=== PATIENT | female | born 1970 | race Caucasian/White ===

== ENCOUNTER 2017-07-10 19:30 | Emergency (ER) | payer OTHER ==
[2017-07-10 19:54] VITALS: BP 118/86
[2017-07-10] MEDS ORDERED: LIDOCAINE 1%/EPINEPHRINE INJ 20 ML VIAL INJ ONE (21:05)
[2017-07-10] MEDS ORDERED: PROMETHAZINE HCL 25 MG TABLET PO ONE (21:21)
[2017-07-10] MEDS ORDERED: OXYCODONE-ACETAMINOPHEN 5-325 MG TABLET PO ONE (21:21)
--- NOTE | 2017-07-10 21:22 | ER Document Report ---
ED Medical Screen (RME) - General Chief Complaint: Abscess Stated Complaint: POSSIBLE ABSCESS/RIGHT GROIN AREA Time Seen by Provider: 07/10/17 21:21 Notes: 46-year-old female, chief complaint of worsening boil inguinal area. She has had abscesses in the past. She reports redness and tenderness to the area, denies fever, denies diabetes, denies any other symptoms. TRAVEL OUTSIDE OF THE [place] IN LAST 30 DAYS: No - Related Data Allergies/Adverse Reactions: No Known Allergies Allergy (Verified 07/10/17 19:50) Past Medical History Renal/ Medical History: Denies: Hx Peritoneal Dialysis Physical Exam - Vital signs Vitals: Temp Pulse Resp BP Pulse Ox 98.6 F 69 16 118/86 H 97 07/10/17 19:50 07/10/17 19:50 07/10/17 19:50 07/10/17 19:50 07/10/17 19:50 - Skin Location of irregularity: Other - Right inguinal area with tender, fluctuant, erythematous area, exam is limited by triage location Course - Vital Signs Vital signs: Temp Pulse Resp BP Pulse Ox 98.6 F 69 16 118/86 H 97 07/10/17 19:50 07/10/17 19:50 07/10/17 19:50 07/10/17 19:50 07/10/17 19:50
[2017-07-10] MEDS ORDERED: CLINDAMYCIN HCL 150 MG CAPSULE PO ONE (22:39)
[2017-07-10] MEDS ORDERED: SULFAMETHOXAZOLE/TRIMETHOPRIM 800-160 MG TABLET PO ONE (22:39)
--- NOTE | 2017-07-10 22:42 | ER Document Report ---
ED General - General Chief Complaint: Abscess Stated Complaint: POSSIBLE ABSCESS/RIGHT GROIN AREA Time Seen by Provider: 07/10/17 21:21 Notes: Patient is a 46-year-old female who presents with complaint of a abscess in the right inguinal area. Patient says abscesses right where she left node biopsy and removal 5 years ago. Lymph nodes were negative for cancer. This was because of vulvar cancer. She is cancer free and has been for 5 years. She denies any fevers. She is visiting from [place]. She has no other complaints at this time. Abscesses been there for approximately 4 days. TRAVEL OUTSIDE OF THE [place] IN LAST 30 DAYS: No - Related Data Allergies/Adverse Reactions: No Known Allergies Allergy (Verified 07/10/17 19:50) Past Medical History - Social History Smoking Status: Unknown if Ever Smoked Frequency of alcohol use: None Drug Abuse: None Family History: Reviewed & Not Pertinent Renal/ Medical History: Denies: Hx Peritoneal Dialysis Review of Systems - Review of Systems Notes: My Normal Review Basic REVIEW OF SYSTEMS: CONSTITUTIONAL : Denies fever, chills, or sweats. Denies recent illness. GASTROINTESTINAL: Denies abdominal pain. Denies nausea, vomiting, or diarrhea. Denies constipation. Last BM: GENITOURINARY: Denies difficulty urinating, painful urination, burning, frequency, or blood in urine. MUSCULOSKELETAL: Denies neck or back pain or joint pain or swelling. SKIN: Pain and possible abscess in right inguinal area. NEUROLOGICAL: Denies altered mental status or loss of consciousness. Denies headache. Denies weakness or paralysis or loss of use of either side. Denies problems with gait or speech. Denies sensory or motor loss. ALL OTHER SYSTEMS REVIEWED AND NEGATIVE. Physical Exam - Vital signs Vitals: Temp Pulse Resp BP Pulse Ox 98.6 F 69 16 118/86 H 97 07/10/17 19:50 07/10/17 19:50 07/10/17 19:50 07/10/17 19:50 07/10/17 19:50 - Notes Notes: General Appearance: Well nourished, alert, cooperative, no acute distress, no obvious discomfort. Normal Appearing. Vitals: reviewed, See vital signs table. Lungs: No wheezing, No rales, No rhonci, No accessory muscle use, good air exchange bilaterally. Heart: Normal rate, Regular rythm, No murmur, no rub Abdomen: Normal BS, soft, No rigidity, No abdominal tenderness, No guarding, no rebound, no abdominal masses, no organomegaly Extremities: strength 5/5 in all extremities, good pulses in all extremities, no swelling or tenderness in the extremities, no edema. Skin: Small area of fluctuance and redness in the right inguinal area. On bedside ultrasound patient does have approximately a 2-3 cm fluid collection consistent with an abscess. Only localized erythema. Neuro: speech clear, oriented x 3, normal affect, responds appropriately to questions. Course - Re-evaluation Re-evalutation: 07/11/17 05:50 Abscess was incised. Pus was drained. It was then flushed with saline. I did apply Betadine packing. I did place a Xeroform gauze. Patient to follow-up with her physician soon as she gets back to however. Patient to return to ER immediately if she has any recurrence of swelling or fluctuance, spreading redness, or fevers. Patient agrees with plan will be discharged home. Dictation of this chart was performed using voice recognition software; therefore, there may be some unintended grammatical errors. - Vital Signs Vital signs: Temp Pulse Resp BP Pulse Ox 98.6 F 69 16 118/86 H 97 07/10/17 19:50 07/10/17 19:50 07/10/17 19:50 07/10/17 19:50 07/10/17 19:50 Procedures - Incision and Drainage right inguinal area Type: Simple Anesthetic type: 1% Lidocaine mL's of anesthetic: 2 Blade size: 11 I&D procedure: Chlorprep applied Incision Method: Incision made by scalpel Amount/type of drainage: purulent 3mls Notes: 07/11/17 05:51 Iodoform packing was loosely placed. Xeroform gauze was placed over. Patient tolerated procedure well without complications. Discharge - Discharge Clinical Impression: Abscess Condition: Good Disposition: HOME, SELF-CARE Additional Instructions: ABSCESS: You have an abscess (boil). This a pus-forming infection, usually due to staph. Some boils may be left to drain on their own, but most require lancing. From the time the tender lump first appears, it may be three or four days before the abscess is ready to denis. Local heat and rest help at this stage of treatment. An antibiotic may prevent spread of the infection. Once the abscess is opened, packing may be placed into it. This is done so pus is not sealed inside by premature closure of the cavity. The packing will be removed at your follow-up visit or you may be advised to remove it yourself at home. Sometimes this packing must be replaced a few times during healing. The wound will heal with surprisingly little scar. Depending on the size and location of an abscess, healing can take one to four weeks. You may shower and wash the area around the incision site two or three times a day. Antibiotics may be prescribed, but are usually not necessary after an abscess has been drained. If you develop fever, chills, worsening pain, or increasing swelling in the area, call the doctor or return immediately. POST INCISION AND DRAINAGE: You have had an incision made to allow drainage of an abscess. The incision must remain open so that pus and debris can drain from the wound. If the abscess cavity is large, packing is placed. This keeps the tissues from collapsing and trapping pus inside, while the body shrinks the cavity. The packing may need to be replaced every day or two. The physician will instruct you on the packing. Keep a bulky dressing over the area. Replace it if it becomes saturated with blood or pus. Do not disturb the packing (if present). You may shower and cleanse the area with gentle soap and warm water two or three times a day. Local warmth may be soothing, and may promote faster healing. Return if you develop high fever or chills, or if you note spreading redness, increasing swelling, or increasing tenderness. TRIMETHOPRIM-SULFA: You have been given a prescription for trimethoprim-sulfa (TMS, Septra, Bactrim). This is a combination antibiotic of the sulfa class, often used for urinary tract infections, middle ear infections, bronchitis, shigella intestinal infection, and Pneumocystis pneumonia. TMS is usually well-tolerated. Occasional side effects include nausea and decreased appetite. Septra is not recommended for infants less than two months of age. Do not take this medication if you have experienced severe side effects or allergy to sulfa medicine. You should stop this medicine at once and contact your physician if you develop any rash, joint pain, shortness of breath, bruising, or jaundice ( yellow color in the skin), or if you develop any other new or unusual symptoms. FOLLOW-UP CARE: Most simple abscesses will not require a follow up visit. If you had packing placed in the abscess, remove it as instructed by the physician. If you have been referred to a physician for follow-up care, call the physicians office for an appointment as you were instructed or within the next two days. If you experience worsening or a significant change in your symptoms, return to the Emergency Department at any time for re-evaluation. Please return to the ER immediately if you have spreading redness, recurrence of swelling, fevers, or concerns that your infection is not improving or is worsening. please follow up with your doctor or the ER in 3-4 days for recheck of your wound. Stop taking the antibiotics and return to the ER if you start having diarrhea. Prescriptions: Clindamycin HCl 300 mg PO ASDIR #56 capsule Sulfamethoxazole/Trimethoprim [Bactrim Ds Tablet] 1 each PO BID #14 tablet
== END 2017-07-10 23:27 | disposition home or self-care (01) ==
LOC: ER 19:30
PROC: 0Y953ZZ Drainage of Right Inguinal Region, Percutaneous Approach (ICD-10-PCS; principal; 2017-07-10)
DX: L02.214 Cutaneous abscess of groin (principal); Z85.44 Personal history of malignant neoplasm of other female genital organs; Z98.890 Other specified postprocedural states
CPT/HCPCS: 99283; 10060; A6266

== ENCOUNTER 2017-07-22 18:27 | Emergency (ER) | payer OTHER ==
[2017-07-22 18:45] VITALS: BP 120/74
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
--- NOTE | 2017-07-22 19:37 | RADIOLOGY REPORT (SQ) ---
EXAM DESCRIPTION: KNEE RIGHT 4 VIEWS COMPLETED DATE/TIME: 07/22/2017 7:28 pm REASON FOR STUDY: right knee pain COMPARISON: None. NUMBER OF VIEWS: Four views. TECHNIQUE: AP, lateral, and both oblique radiographic images acquired of the right knee. LIMITATIONS: None. FINDINGS: MINERALIZATION: Normal. BONES: No acute fracture or dislocation. Mild joint space narrowing with small osteophytes. No worr isome bone lesions. JOINT: No effusion. SOFT TISSUES: No soft tissue swelling. No radio-opaque foreign body. OTHER: No other significant finding. IMPRESSION: MILD DEGENERATIVE CHANGES. NO RADIOGRAPHIC EVIDENCE OF ACUTE INJURY. TECHNICAL DOCUMENTATION: JOB ID: [id number] [employer]- All Rights Reserved
== END 2017-07-22 20:16 | disposition home or self-care (01) ==
LOC: ER 18:27
DX: M25.561 Pain in right knee (principal); X50.1XXA Overexertion from prolonged static or awkward postures, initial encounter; Y92.832 Beach as the place of occurrence of the external cause; F17.200 Nicotine dependence, unspecified, uncomplicated
CPT/HCPCS: 99283; 73564; L1830

== ENCOUNTER 2020-11-26 11:53 | Emergency (ER) | payer OTHER ==
[2020-11-26 12:01] VITALS: BP 141/88
[2020-11-26] MEDS ORDERED: MORPHINE SULFATE 10 MG/ML INJ IV ONE (12:21)
[2020-11-26] MEDS ORDERED: DEXAMETHASONE SOD PHOS INJ 10 MG/1 ML VIAL IV ONE (12:21)
--- NOTE | 2020-11-26 12:23 | ER Document Report ---
ED Medical Screen (RME) - General Chief Complaint: Toothache Stated Complaint: FACIAL SWELLING/TOOTH PAIN Time Seen by Provider: 11/26/20 12:16 Mode of Arrival: Ambulatory Information source: Patient Notes: HPI; 50-year-old female presents to the emergency room complaining of left upper dental pain for the past 3 days. States she woke up this morning with her entire left side of her face swollen and painful. Denies any trauma or injury. No difficulty swallowing. No fever. Took ibuprofen last night without any relief. Handling her own secretions. No shortness of breath or difficulty breathing. Here visiting from [place]. No local dentist PE: Alert and oriented x3. Lungs: Clear to auscultation without rales, rhonchi, wheezes. Heart: Regular rate rhythm without murmurs, rubs, gallops. Moderate amount of left-sided facial swelling from the jaw up to the left cheek. Tender to palpation. No fluctuant dental abscess palpated. I have greeted and performed a rapid initial assessment of this patient. A comprehensive ED assessment and evaluation of the patient, analysis of test results and completion of the medical decision making process will be conducted by additional ED providers. I have specifically instructed the patient or family members with the patient to immediately return to any nursing staff should anything change in the patient's condition or with their chief complaint. TRAVEL OUTSIDE OF THE [place] IN LAST 30 DAYS: No - Related Data Allergies/Adverse Reactions: No Known Allergies Allergy (Verified 07/22/17 18:59) Past Medical History - Social History Chew tobacco use (# tins/day): No Frequency of alcohol use: None Drug Abuse: None Renal/ Medical History: Denies: Hx Peritoneal Dialysis Past Surgical History: Reports: Hx Orthopedic Surgery Physical Exam - Vital signs Vitals: Temp Pulse Resp BP Pulse Ox 98.6 F 67 20 141/88 H 96 11/26/20 11:59 11/26/20 11:59 11/26/20 11:59 11/26/20 11:59 11/26/20 11:59 Course - Vital Signs Vital signs: Temp Pulse Resp BP Pulse Ox 98.6 F 67 20 141/88 H 96 11/26/20 11:59 11/26/20 11:59 11/26/20 11:59 11/26/20 11:59 11/26/20 11:59
[2020-11-26 12:59] LABS: ABSOLUTE EOSINOPHILS # (AUTO) 0.2 10^3/uL (0.0-0.6); ABSOLUTE LYMPHOCYTES (AUTO) 2.5 10^3/uL (0.5-4.7); ABSOLUTE MONOCYTES (AUTO) 0.5 10^3/uL (0.1-1.4); BASOPHILS % (AUTO) 0.5 % (0-2); EOSINOPHILS % (AUTO) 2.5 % (0-6); HEMATOCRIT 39.7 % (36.0-47.0); HEMOGLOBIN 13.5 g/dL (12.0-15.5); MEAN CORPUSCULAR HEMOGLOBIN 30.7 pg (27.0-33.4); MEAN CORPUSCULAR HGB CONC 34.1 g/dL (32.0-36.0); MEAN CORPUSCULAR VOLUME 90 fl (80-97); PLATELET COUNT 215 10^3/uL (150-450); RED BLOOD COUNT 4.41 10^6/uL (3.72-5.28); RED CELL DISTRIBUTION WIDTH 13.5 % (11.5-14.0); TOTAL CELLS COUNTED % (AUTO) 100 %; WHITE BLOOD COUNT 7.2 10^3/uL (4.0-10.5)
[2020-11-26 13:17] LABS: ALBUMIN 3.7 g/dL (3.5-5.0); ALKALINE PHOSPHATASE 126 U/L (38-126); ANION GAP 6 (5-19); ASPARTATE AMINO TRANSFERASE 18 U/L (14-36); BILIRUBIN,DIRECT 0.2 mg/dL (0.0-0.4); BILIRUBIN,TOTAL 0.2 mg/dL (0.2-1.3); BLOOD UREA NITROGEN 8 mg/dL (7-20); CALCIUM 8.7 mg/dL (8.4-10.2); CARBON DIOXIDE 23 mmol/L (22-30); CHLORIDE 109 mmol/L (98-107); GLUCOSE 102 mg/dL (75-110); POTASSIUM 4.3 mmol/L (3.6-5.0); TOTAL PROTEIN 6.6 g/dL (6.3-8.2)
[2020-11-26] MEDS ORDERED: CLINDAMYCIN 600 MG/D5W RTU 600 MG/50 ML RTUPB IV ONE (13:43)
--- NOTE | 2020-11-26 14:13 | RADIOLOGY REPORT (SQ) ---
EXAM DESCRIPTION: CT SOFT TISSUE NECK WITH IMAGES COMPLETED DATE/TIME: 11/26/2020 1:57 pm REASON FOR STUDY: facial swelling COMPARISON: None. TECHNIQUE: Post IV contrasted scanning from skull base through lung apices with review of bone, soft tissue and lung windows. Reconstructed coronal and sagittal MPR images reviewed. All images stored on PACS. All CT scanners at this facility use dose modulation, iterative reconstruction, and/or weight based d osing when appropriate to reduce radiation dose to as low as reasonably achievable (ALARA). [facility]: Dose Right [facility]: CareDose [facility]: Dose Right [facility]: Teradose 4D [facility]: Slidely CONTRAST TYPE AND DOSE: 100mL Omnipaque 350 RENAL FUNCTION: Creatinine 0.8 RADIATION DOSE: CT Rad equipment meets quality standard of care and radiation dose reduction techniq ues were employed. CTDIvol: 24.0 mGy. DLP: 787 mGy-cm. mGy. LIMITATIONS: None. FINDINGS: SKULL BASE: Intact. MAJOR SALIVARY GLANDS: No solid or cystic masses. No inflammatory changes. LYMPHADENOPATHY: No adenopathy. MUCOSAL MASSES OR ASYMMETRY: No mucosal masses or asymmetry. LARYNX/CORDS: No abnormal findings. VASCULAR STRUCTURES: The major vessels are patent. LUNG APICES: Clear. BONES: Intact. THYROID: Normal size. No masses. PARANASAL SINUSES: Clear. SOFT TISSUES: Soft tissue swelling and ill-defined stranding along the left anterior maxilla and tanya ible. No focal collection. No discrete mass lesion. IMPRESSION: Soft tissue swelling and mild ill-defined stranding along the left anterior maxilla and mandibular soft tissues. No focal collection or discrete mass. TECHNICAL DOCUMENTATION: JOB ID: [id number] [facility] [id number]: Final reports with documentation of one or more dose reduction techniques (e.g., Automate d exposure control, adjustment of the mA and/or kV according to patient size, use of iterative recons truction technique) 2010 [employer]- All Rights Reserved Reading location - IP/workstation name: [email or web address]
--- NOTE | 2020-11-26 15:17 | ER Document Report ---
ED Oral Problem - General Chief Complaint: Toothache Stated Complaint: FACIAL SWELLING/TOOTH PAIN Time Seen by Provider: 11/26/20 12:16 Mode of Arrival: Ambulatory Notes: CHIEF COMPLAINT: Dental pain and facial swelling HPI: 50-year-old female presenting for dental pain over the last 3 days with left facial swelling today. No fever. Believes she has a dental infection ROS: See HPI - all other systems were reviewed and are otherwise negative Constitutional: no fever Eyes: no drainage, no blurred vision ENT: no runny nose, no sore throat, positive left facial swelling, positive dental pain Integumentary: no rash Allergy: no hives MEDICATIONS: I agree with the patient medications as charted by the RN. ALLERGIES: I agree with the allergies as charted by the RN. PAST MEDICAL HISTORY/PAST SURGICAL HISTORY: Reviewed and agree as charted by RN. SOCIAL HISTORY: Reviewed and agree as charted by RN. FAMILY HISTORY: No significant familial comorbid conditions directly related to patient complaint EXAM: Reviewed vital signs as charted by RN. CONSTITUTIONAL: Alert and oriented and responds appropriately to questions. Well-appearing; well-nourished HEAD: Normocephalic; atraumatic EYES: PERRL; Conjunctivae clear, sclerae non-icteric ENT: normal nose; no rhinorrhea; moist mucous membranes; pharynx without lesions noted, no uvula edema or deviation, no tonsillar hypertrophy, phonation normal. There is some erythema adjacent to the left lateral upper central incisor. There is no fluctuance. There is left facial swelling in the preseptal region with tenderness on palpation no overlying erythema no indurated or fluctuant regions. No trismus. No sublingual swelling. No submandibular swelling NECK: Supple without meningismus; non-tender; no cervical lymphadenopathy, no masses CARD: symmetric distal pulses RESP: Normal chest excursion without splinting or tachypnea ABD/GI: non-distended BACK: The back appears normal EXT: Normal ROM in all joints; no cyanosis, no effusions, no edema SKIN: Normal color for age and race; warm; dry; good turgor; no acute lesions noted NEURO: Moves all extremities equally; Motor and sensory function intact PSYCH: The patient's mood and manner are appropriate. Grooming and personal hygiene are appropriate. MDM: 50-year-old female left facial cellulitis from a dental infection. No visible abscess on CT. Labs are normal. Will continue on clindamycin, pain medicine, follow-up with a dentist patient indicates she has 1 return if symptoms worsen TRAVEL OUTSIDE OF THE [place] IN LAST 30 DAYS: No - Related Data Allergies/Adverse Reactions: No Known Allergies Allergy (Verified 07/22/17 18:59) Past Medical History - General Information source: Patient - Social History Smoking Status: Current Every Day Smoker Chew tobacco use (# tins/day): No Frequency of alcohol use: None Drug Abuse: None Family History: Reviewed & Not Pertinent Renal/ Medical History: Denies: Hx Peritoneal Dialysis Past Surgical History: Reports: Hx Orthopedic Surgery Physical Exam - Vital signs Vitals: Temp Pulse Resp BP Pulse Ox 98.6 F 67 20 141/88 H 96 11/26/20 11:59 11/26/20 11:59 11/26/20 11:59 11/26/20 11:59 11/26/20 11:59 Course - Vital Signs Vital signs: Temp Pulse Resp BP Pulse Ox 98.6 F 67 20 141/88 H 96 11/26/20 11:59 11/26/20 11:59 11/26/20 11:59 11/26/20 11:59 11/26/20 11:59 - Laboratory Results Result Diagrams: 11/26/20 12:37 11/26/20 12:37 Laboratory Results Interpreted: 11/26/20 12:37 Chloride 109 H Critical Laboratory Results Reviewed: No Critical Results - Radiology Results Critical Radiology Results Reviewed: No Critical Results Discharge - Discharge Clinical Impression: Dental abscess, Facial cellulitis Condition: Stable Disposition: HOME, SELF-CARE Additional Instructions: 1. Take the medications as prescribed, if you were written antibiotics make sure that you finish them. 2. You need to follow up with a dentist for definitive evaluation and care of your dental problems 3. return to the ED for any facial swelling, fever > 101, difficulty swallowing or opening the mouth. 4. You may attempt to follow up with the [facility] for further care as well as through the dental list provided. 5. you may want to consider a dental discount plan such as [email or web address] to help with costs of dental care as you do not have dental insurance Prescriptions: Clindamycin HCl [Cleocin 150 mg Capsule] 150 mg PO Q6 #40 capsule Hydrocodone/Acetaminophen [[place] 5-325 mg Tablet] 1 tab PO Q4 PRN #15 tablet PRN Reason:
== END 2020-11-26 15:35 | disposition home or self-care (01) ==
LOC: ER 11:53
DX: K04.7 Periapical abscess without sinus (principal); L03.211 Cellulitis of face; F17.200 Nicotine dependence, unspecified, uncomplicated
CPT/HCPCS: 99285; 96375; 96365; 36415; 83605; 85025; 80053; 70491; J2270; J1100